=== PATIENT | female | born 1990 | race African-American/Black ===

== ENCOUNTER 2016-10-11 00:36 | Emergency (ER) | payer OTHER ==
[~2016-10-11] VITALS: Ht 157.5 cm; Wt 99.8 kg
[2016-10-11] MEDS ORDERED: ZITHTAB PO (02:52)
[2016-10-11] MEDS ORDERED: IBUP80TA PO (02:53)
[2016-10-11] MEDS ORDERED: PRED20TA PO (02:53)
[2016-10-11] MEDS: ACETAMINOPHEN 325 MG TAB PO ONE (03:00)
[2016-10-11] MEDS: ONDANSETRON 4 MG ORAL DISINTEGRATING TAB (S0181) PO ONE (03:01)
[2016-10-11] MEDS: AZITHROMYCIN 250 MG TAB PO ONE (03:01)
[2016-10-11 03:08] VITALS: BP 132/58
== END 2016-10-11 03:09 | disposition home or self-care (01) ==
LOC: M ED 02:39
DX: H66.93 Otitis media, unspecified, bilateral (principal); J03.90 Acute tonsillitis, unspecified

== ENCOUNTER 2017-04-19 22:37 | Emergency (ER) | payer OTHER ==
[~2017-04-19] VITALS: Ht 157.5 cm; Wt 95.5 kg
[~2017-04-19 22:37] MED LIST: IBUP80TA PO; PRED20TA PO; ZITHTAB PO
[2017-04-20] MEDS ORDERED: MORPHINE 2 MG/ML 1ML SYRINGE IV PRN (00:30)
[2017-04-20] MEDS ORDERED: ONDANSETRON 4 MG ORAL DISINTEGRATING TAB (S0181) PO ONE (00:30)
[2017-04-20 00:52] LABS: BASO % 0.4 % (0.0-1.0); EOS # 0.4 K/mm3 (0.0-0.50); EOS % 4.8 % (0.0-3.0); LARGE UNSTAINED CELL # 0.1 K/mm3 (0.0-0.4); LARGE UNSTAINED CELL % 1.4 % (0.0-4.0); LYMPH # 2.8 K/mm3 (1.5-6.5); LYMPH % 36.7 % (24.0-44.0); MEAN CORPUSCULAR HEMOGLOBIN 31.2 pg (27.0-33.0); MEAN CORPUSCULAR HGB CONC 35.1 g/dl (32.0-36.5); MEAN CORPUSCULAR VOLUME 88.7 fl (80.0-96.0); MONO # 0.3 K/mm3 (0.0-0.8); NEUTROPHILS # 4.1 K/mm3 (1.8-7.7); NEUTROPHILS % 52.7 % (36.0-66.0); PLATELET COUNT, AUTOMATED 276 k/mm3 (150-450); WHITE BLOOD COUNT 7.7 K/mm3 (4.0-10.0)
[2017-04-20 01:10] LABS: ALBUMIN 4.1 GM/DL (3.2-5.2); ALBUMIN/GLOBULIN RATIO 0.98 (1.00-1.93); ALKALINE PHOSPHATASE 62 U/L (45-117); ALT/SGPT 25 U/L (12-78); ANION GAP 4 MEQ/L (8-16); AST/SGOT 20 U/L (15-37); BILIRUBIN,DIRECT < 0.1 MG/DL (0.0-0.2); BILIRUBIN,TOTAL 0.3 MG/DL (0.2-1.0); BLOOD UREA NITROGEN 16 MG/DL (7-18); CALCIUM LEVEL 9.1 MG/DL (8.5-10.1); CARBON DIOXIDE LEVEL 31 MEQ/L (21-32); CHLORIDE LEVEL 104 MEQ/L (98-107); CREATININE FOR GFR 0.98 MG/DL (0.55-1.02); GLOMERULAR FILTRATION RATE > 60.0 (>60); GLUCOSE, FASTING 92 MG/DL (70-105); POTASSIUM SERUM 3.6 MEQ/L (3.5-5.1); SODIUM LEVEL 139 MEQ/L (136-145); TOTAL PROTEIN 8.3 GM/DL (6.4-8.2)
--- NOTE | 2017-04-20 01:30 | REPUSA ---
Clinical history: Pain. IUD. Findings: Real-time transabdominal and transvaginal ultrasound images of the pelvis were obtained. An anteverted uterus is noted, measuring 9.0 x 5.0 6.3 cm. The uterus demonstrates normal echotexture a nd echogenicity. The IUD is in place within the endometrial canal. The right ovary measures 3.0 x 1.9 x 1.0 cm. The left ovary measures 2.4 x 1.6 x 1.9 cm. No adnexal masses are seen. Color Doppler flow is seen within both ovaries. There is no evidence of free fluid. The urinary bladder is unremarkable . Impression: Unremarkable ultrasound examination of the pelvis. IUD is in place.
[2017-04-20 01:51] VITALS: BP 136/75
[2017-04-20] MEDS ORDERED: FLAG500T PO (02:01)
[2017-04-20] MEDS ORDERED: DIFL150T PO (02:02)
== END 2017-04-20 02:10 | disposition home or self-care (01) ==
LOC: M ED 22:37
DX: B37.3 Candidiasis of vulva and vagina (principal); N76.0 Acute vaginitis; Z84.2 Family history of other diseases of the genitourinary system